=== PATIENT | male | born 2000 | race Caucasian/White ===

== ENCOUNTER 2021-07-10 22:23 | Emergency (ER) | payer SELFPAY ==
[~2021-07-10] VITALS: Ht 160 cm; Wt 72.7 kg
[2021-07-10 23:10] VITALS: TEMP 98.6
[2021-07-11] MEDS ORDERED: AMOXICILLIN 8751 TAB PO (01:30)
[2021-07-11 01:45] VITALS: BP 124/73; PULSE 85
== END 2021-07-11 01:45 | disposition home or self-care (01) ==
LOC: COL.ER 22:23
DX: L01.00 Impetigo, unspecified (principal)

== ENCOUNTER 2021-07-29 18:22 | Emergency (ER) | payer SELFPAY ==
[~2021-07-29] VITALS: Ht 160 cm; Wt 70.5 kg
[~2021-07-29 18:22] MED LIST: AMOXICILLIN 8751 TAB PO
[2021-07-29 18:44] VITALS: TEMP 101.5
[2021-07-29 19:30] VITALS: BP 120/65; PULSE 99
[2021-07-29] MEDS ORDERED: DRIZALMA SPRINK30 MG PO (19:39)
[2021-07-29] MEDS ORDERED: MAGIC MOUTH PO (19:43)
== END 2021-07-29 19:50 | disposition home or self-care (01) ==
LOC: COL.ER 18:22
DX: K13.79 Other lesions of oral mucosa (principal)

== ENCOUNTER 2021-10-01 23:09 | Emergency (ER) | payer OTHER ==
[~2021-10-01] VITALS: Ht 160 cm; Wt 75.0 kg
[~2021-10-01 23:09] MED LIST changes: +DRIZALMA SPRINK30 MG PO; +MAGIC MOUTH PO
[2021-10-01 23:18] VITALS: TEMP 97.7
[2021-10-01 23:49] VITALS: BP 119/63; PULSE 87
[2021-10-01] MEDS ORDERED: BACTRIM DS 8001 TAB PO (23:50)
== END 2021-10-01 23:58 | disposition home or self-care (01) ==
LOC: COL.ER 23:09
DX: S90.921A Unspecified superficial injury of right foot, initial encounter (principal); X58.XXXA Exposure to other specified factors, initial encounter